=== PATIENT | male | born 1950 | race Caucasian/White ===

== ENCOUNTER 2022-09-21 18:33 | Inpatient (IN) | payer OTHER, MEDICARE ==
[~2022-09-21] VITALS: Ht 175.3 cm; Wt 70.8 kg
[2022-09-21 18:35] VITALS: BP_SYST 134
[2022-09-21] MEDS ORDERED: DECADRON 4 MG TABLET PO ONE (19:30)
[2022-09-21 21:05] LABS: ANION GAP 8 (5-15); CALCIUM 9.4 mg/dL (8.4-11.0); CHLORIDE 101 mmol/L (98-107); CREATININE 0.55 mg/dL (0.55-1.30); GLUCOSE 111 mg/dL (70-99); UREA NITROGEN, BLOOD 14 mg/dL (8-21)
[2022-09-21 21:14] LABS: ALANINE AMINOTRANSFERASE 46 U/L (12-78); ALBUMIN 3.8 g/dL (3.4-4.8); ASPARTATE AMINOTRANSFERASE 46 U/L (10-37); PHOSPHORUS 3.5 mg/dL (2.7-4.5); TOTAL BILIRUBIN 0.4 mg/dL (0.0-1.0)
--- NOTE | 2022-09-21 21:32 | NUR ---
Patient to ER bed 06 to gown for evaluation. Side rails up.
[2022-09-21 21:52] LABS: BASOPHILS % (AUTO) 0.4 % (0.0-2.0); HEMATOCRIT 47.9 % (36-54); HEMOGLOBIN 15.8 g/dL (14.0-18.0); LYMPHOCYTES % (AUTO) 11.7 % (20.5-51.5); MEAN CORPUSCULAR HEMOGLOBIN 30 pg (27-31); MEAN CORPUSCULAR HGB CONC 33 % (32-36); MEAN CORPUSCULAR VOLUME 91 fL (79.0-98.0); MONOCYTES # (AUTO) 0.9 K/uL (0.0-1.0); MONOCYTES % (AUTO) 10.1 % (1.7-9.3); NEUTROPHILS # (AUTO) 6.6 K/uL (1.8-7.7); NEUTROPHILS % (AUTO) 77.8 % (40.0-70.0); PLATELET COUNT (AUTO) 192 K/uL (130-430); RED BLOOD CELL COUNT(AUTO) 5.23 MIL/uL (4.2-6.2); RED CELL DISTRIBUTION WIDTH 14.2 % (9.0-15.0); WHITE BLOOD COUNT (AUTO) 8.5 K/uL (4.8-10.8)
[2022-09-21] MEDS ORDERED: DECADRON 4 MG TABLET ONE (21:57)
--- NOTE | 2022-09-21 22:03 | NUR ---
PT TESTED POSITIVE FOR COVID TODAY COMPLAINING OF FLU-LIKE SYMPTOMS, INCREASED SOB, AND FEVER PLACED PT ON 2L NC PT AOX4. RESP LABORED WITH ACTIVITY. COUGHING NOTED. SKIN HOT, DRY, INTACT. HX HYPOKALEMIA
--- NOTE | 2022-09-21 22:09 | NUR ---
COVID/INFLUENZA COLLECTED AND SENT TO LAB.
[2022-09-21] MEDS ORDERED: ACETAMINOPHEN 500 MG TABLET PO ONE (22:15)
[2022-09-21] MEDS ORDERED: ACETAMINOPHEN 500 MG TABLET ONE (22:22)
[2022-09-22] MEDS ORDERED: AZITHROMYCIN 500 MG in NS 250 ML IV ONE ×2
--- NOTE | 2022-09-22 00:10 | NUR ---
# 20 gauge angiocath placed to RIGHT HAND. Use of asceptic technique. Opsite placed over site. Blood return noted. Blood for lab drawn from site. Flushed with 10 cc of normal saline. No evidence of infiltration noted. Patient tolerated well.
[2022-09-22] MEDS ORDERED: cefTRIAXone 1 GM VIAL ONE (00:38)
[2022-09-22] MEDS: ENOXAPARIN SODIUM 40 MG/0.4 ML SYRINGE SUBCUT SCH ×2 (00:38→21:40)
[2022-09-22] MEDS: cefTRIAXone 1 GM in D5W 50 ML IV SCH (00:40)
[2022-09-22] MEDS ORDERED: POTA8TAB66 PO (00:42)
[2022-09-22] MEDS ORDERED: AZITHROMYCIN 500 MG/VIAL (ZITHROMAX) IV ONE (00:49)
--- NOTE | 2022-09-22 01:09 | NUR ---
Patient will be admitted to care of shanel molina. Admitted to tele unit. Will go to room 133b. Belongings list completed. Complete and up to date summary report printed. SBAR report to be given at bedside with opportunity for questions.
--- NOTE | 2022-09-22 01:10 | NUR ---
Admission Note Received patient from ER with diagnosis of acute respiratory failure. Initial Plan of Care discussed-patient verbalized understanding. Oriented to room, call light, pain management and safety.
[2022-09-22 01:18] VITALS: BP_SYST 92
--- NOTE | 2022-09-22 03:21 | NUR ---
ROUNDS PATIENT IN BED, RESTING. NO CHANGE IN CONDITION. WILL MONITOR.
--- NOTE | 2022-09-22 04:51 | NUR ---
CONSULTATION PAGED/CALLED Reason for Consultation: COVID Person Who was Notified: LASHONDA Consulting Physician: DR.BEGUM SIMPSON FOR Lap Winding Machine Operator Specialty: ID Ordering Physician: LILY
--- NOTE | 2022-09-22 06:13 | NUR ---
CLOSING NOTE PATIENT IN BED, RESTING. NO S/S OF ACUTE DISTRESS NOTED. BREATHING EVEN AND UNLABORED. HOB RAISED. NASAL CANULA ATTACHED PROPERLY, ON 4L OF OXYGEN. IV SITE PATENT, NO SIGNS OF INFILTRATION OR INFECTION NOTED. ALL NEEDS MET THROUGHOUT SHIFT. FALL, SAFETY PRECAUTIONS IN PLACE. WILL MONITOR UNTIL PATIENT CARE IS ENDORSED TO ONCOMING DAYSHIFT NURSE.
[2022-09-22 08:22] VITALS: BP_SYST 96
[2022-09-22] MEDS: ASCORBIC ACID 500 MG TABLET PO SCH ×2 (08:51→21:39)
[2022-09-22] MEDS: CHOLECALCIFEROL (VITAMIN D3) 2,000 UNIT TABLET PO SCH (08:52)
[2022-09-22] MEDS: POTASSIUM CHLORIDE 20 MEQ TAB.PRT.SR PO SCH ×2 (08:52→21:39)
[2022-09-22] MEDS: MAGNESIUM OXIDE 400 MG TABLET PO SCH ×2 (08:52→21:39)
--- NOTE | 2022-09-22 09:45 | NUR ---
PT ASSISTED TO BS COMMODE. PT IS MAX ASSIST DUE TO WEAKNESS. NOTED THAT PT UNABLE TO STAND FROM SITTING POSITION. NEEDS ASSIST.
--- NOTE | 2022-09-22 12:00 | NUR ---
CONSULTATION PAGED/CALLED Reason for Consultation: [] COVID Person Who was Notified: [] ROMERO Consulting Physician: [] DR VASQUEZ Freight Brake Operator Specialty: [] PULMO Ordering Physician: [] DR BAUTISTA
[2022-09-22] MEDS ORDERED: BUDE6HFA INH (12:31)
[2022-09-22] MEDS ORDERED: BUDESONIDE/FORMOTEROL 160-4.5 mCg, 6 GM INHALER INH SCH (13:45)
[2022-09-22] MEDS: ALBUTEROL MDI INHALATION 8 GM INH INH SCH ×3 (14:45→21:59)
[2022-09-22 15:01] VITALS: BP_SYST 108
[2022-09-22 18:22] VITALS: BP_SYST 110
--- NOTE | 2022-09-22 19:32 | NUR ---
PT HAS BEEN STABLE THE WHOLE SHIFT, NO FEVER. PT STARTED ON REMDESIVIR AND MDI INHALERS. ENDORSED TO NIGHT NURSE.
[2022-09-22 20:30] VITALS: BP_SYST 106
[2022-09-22] MEDS: methylPREDNISolone SOD SUCC/PF 62.5 MG/ML VIAL IVP SCH (21:40)
[2022-09-22] MEDS: [UNRECOGNIZED DRUG - REMARK] INH SCH (21:59)
[2022-09-23 01:40] VITALS: BP_SYST 112
[2022-09-23] MEDS: cefTRIAXone 1 GM in D5W 50 ML IV SCH ×2 (01:46→22:01)
[2022-09-23] MEDS: methylPREDNISolone SOD SUCC/PF 62.5 MG/ML VIAL IVP SCH ×3 (05:53→22:01)
--- NOTE | 2022-09-23 05:53 | NUR ---
Closing notes Pt asleep, easily awakens. No s/s distress noted. O2 sat 92-93% on 2L NC. Scheduled Solumedrol administered R. hand 20 clear and patent. Safety/Covid isolation maintained. To endorse to AM nurse.
[2022-09-23 06:50] LABS: BASOPHILS % (AUTO) 0.2 % (0.0-2.0); HEMATOCRIT 46.6 % (36-54); HEMOGLOBIN 15.4 g/dL (14.0-18.0); LYMPHOCYTES # (AUTO) 0.6 K/uL (1.0-5.5); LYMPHOCYTES % (AUTO) 11.3 % (20.5-51.5); MEAN CORPUSCULAR HEMOGLOBIN 30 pg (27-31); MEAN CORPUSCULAR HGB CONC 33 % (32-36); MEAN CORPUSCULAR VOLUME 91 fL (79.0-98.0); MONOCYTES # (AUTO) 0.1 K/uL (0.0-1.0); MONOCYTES % (AUTO) 2.6 % (1.7-9.3); NEUTROPHILS # (AUTO) 4.3 K/uL (1.8-7.7); NEUTROPHILS % (AUTO) 85.9 % (40.0-70.0); PLATELET COUNT (AUTO) 199 K/uL (130-430); RED BLOOD CELL COUNT(AUTO) 5.11 MIL/uL (4.2-6.2); RED CELL DISTRIBUTION WIDTH 14.1 % (9.0-15.0)
[2022-09-23 06:58] LABS: ALANINE AMINOTRANSFERASE 46 U/L (12-78); ALBUMIN 2.9 g/dL (3.4-4.8); ANION GAP 6 (5-15); ASPARTATE AMINOTRANSFERASE 39 U/L (10-37); CALCIUM 8.6 mg/dL (8.4-11.0); CHLORIDE 103 mmol/L (98-107); CREATININE 0.45 mg/dL (0.55-1.30); GLUCOSE 157 mg/dL (70-99); TOTAL BILIRUBIN 0.3 mg/dL (0.0-1.0); UREA NITROGEN, BLOOD 19 mg/dL (8-21)
[2022-09-23 07:57] VITALS: BP_SYST 118
[2022-09-23] MEDS: CHOLECALCIFEROL (VITAMIN D3) 2,000 UNIT TABLET PO SCH (09:27)
[2022-09-23] MEDS: [UNRECOGNIZED DRUG - REMARK] INH SCH ×2 (09:27→22:02)
[2022-09-23] MEDS: POTASSIUM CHLORIDE 20 MEQ TAB.PRT.SR PO SCH ×2 (09:28→22:02)
[2022-09-23] MEDS: ASCORBIC ACID 500 MG TABLET PO SCH ×2 (09:28→22:02)
[2022-09-23] MEDS: MAGNESIUM OXIDE 400 MG TABLET PO SCH ×2 (09:28→22:01)
[2022-09-23] MEDS: ALBUTEROL MDI INHALATION 8 GM INH INH SCH ×4 (09:31→22:02)
[2022-09-23 13:43] VITALS: BP_SYST 109
[2022-09-23 18:23] VITALS: BP_SYST 138
--- NOTE | 2022-09-23 19:39 | NUR ---
PT HAS BEEN STABLE THE WHOLE SHIFT, NO SOB, NO FEVER. PT HAD 3X LOOSE STOOL. SEEN BY DR BELTRÁN. ENDORSED TO NIGHT NURSE.
[2022-09-23] MEDS ORDERED: DEXAMETHASONE SOD PHOSPHATE 10 MG/ML VIAL IVP SCH (22:00)
[2022-09-23] MEDS: ENOXAPARIN SODIUM 40 MG/0.4 ML SYRINGE SUBCUT SCH (22:01)
[2022-09-24] MEDS: methylPREDNISolone SOD SUCC/PF 62.5 MG/ML VIAL IVP SCH ×3 (06:36→21:50)
[2022-09-24] MEDS: POTASSIUM CHLORIDE 20 MEQ TAB.PRT.SR PO SCH ×2 (08:15→21:48)
[2022-09-24] MEDS: CHOLECALCIFEROL (VITAMIN D3) 2,000 UNIT TABLET PO SCH (08:15)
[2022-09-24] MEDS: MAGNESIUM OXIDE 400 MG TABLET PO SCH ×2 (08:16→21:49)
[2022-09-24] MEDS: ASCORBIC ACID 500 MG TABLET PO SCH ×2 (08:16→21:49)
[2022-09-24] MEDS: [UNRECOGNIZED DRUG - REMARK] INH SCH ×2 (08:17→21:36)
[2022-09-24] MEDS: ALBUTEROL MDI INHALATION 8 GM INH INH SCH ×4 (08:17→21:36)
[2022-09-24 08:23] VITALS: BP_SYST 127
[2022-09-24 11:44] LABS: ALANINE AMINOTRANSFERASE 49 U/L (12-78); ALBUMIN 3.1 g/dL (3.4-4.8); ANION GAP 5 (5-15); ASPARTATE AMINOTRANSFERASE 29 U/L (10-37); CALCIUM 8.9 mg/dL (8.4-11.0); CHLORIDE 103 mmol/L (98-107); CREATININE 0.65 mg/dL (0.55-1.30); GLUCOSE 167 mg/dL (70-99); TOTAL BILIRUBIN 0.4 mg/dL (0.0-1.0); UREA NITROGEN, BLOOD 19 mg/dL (8-21)
[2022-09-24 12:00] VITALS: BP_SYST 120
--- NOTE | 2022-09-24 14:00 | NUR ---
PT SEEN BY DR VASQUEZ AND DR BELTRÁN. DR BAUTISTA WAS HERE ALSO AND SWA PT. NEW ORDERS GIVEN BY DR BAUTISTA.
[2022-09-24] MEDS ORDERED: LOPERAMIDE HCL 2 MG CAPSULE PO ONE (15:00)
--- NOTE | 2022-09-24 15:49 | NUR ---
Major DE LA CRUZ WORKING WITH PT AT THIS TIME.
[2022-09-24 16:00] VITALS: BP_SYST 123
[2022-09-24 19:00] VITALS: BP_SYST 133
[2022-09-24 20:00] VITALS: BP_SYST 133
[2022-09-24] MEDS: LOPERAMIDE HCL 2 MG CAPSULE PO PRN (21:45)
[2022-09-24] MEDS: ENOXAPARIN SODIUM 40 MG/0.4 ML SYRINGE SUBCUT SCH (21:50)
[2022-09-24] MEDS: cefTRIAXone 1 GM in D5W 50 ML IV SCH (23:52)
[2022-09-25 00:30] VITALS: BP_SYST 112
[2022-09-25] MEDS: LOPERAMIDE HCL 2 MG CAPSULE PO PRN ×3 (04:56→21:47)
[2022-09-25] MEDS: methylPREDNISolone SOD SUCC/PF 62.5 MG/ML VIAL IVP SCH ×3 (05:12→21:15)
[2022-09-25 07:10] LABS: HEMATOCRIT 49.8 % (36-54); HEMOGLOBIN 16.5 g/dL (14.0-18.0); LYMPHOCYTES # (AUTO) 0.9 K/uL (1.0-5.5); LYMPHOCYTES % (AUTO) 10.7 % (20.5-51.5); MEAN CORPUSCULAR HEMOGLOBIN 30 pg (27-31); MEAN CORPUSCULAR HGB CONC 33 % (32-36); MEAN CORPUSCULAR VOLUME 92 fL (79.0-98.0); MONOCYTES # (AUTO) 0.4 K/uL (0.0-1.0); MONOCYTES % (AUTO) 4.5 % (1.7-9.3); NEUTROPHILS # (AUTO) 6.8 K/uL (1.8-7.7); NEUTROPHILS % (AUTO) 84.8 % (40.0-70.0); PLATELET COUNT (AUTO) 268 K/uL (130-430); RED BLOOD CELL COUNT(AUTO) 5.43 MIL/uL (4.2-6.2); RED CELL DISTRIBUTION WIDTH 13.8 % (9.0-15.0)
[2022-09-25 07:27] LABS: ALANINE AMINOTRANSFERASE 51 U/L (12-78); ALBUMIN 3.1 g/dL (3.4-4.8); ANION GAP 8 (5-15); ASPARTATE AMINOTRANSFERASE 19 U/L (10-37); CALCIUM 8.5 mg/dL (8.4-11.0); CHLORIDE 102 mmol/L (98-107); CREATININE 0.36 mg/dL (0.55-1.30); GLUCOSE 135 mg/dL (70-99); TOTAL BILIRUBIN 0.4 mg/dL (0.0-1.0); UREA NITROGEN, BLOOD 20 mg/dL (8-21)
[2022-09-25 08:00] VITALS: BP_SYST 118
--- NOTE | 2022-09-25 08:00 | NUR ---
Initial Notes Patient is Aox4. Awake and resting in bed. On 2 L O 2 via NC. Breathing is even and nonlabored. No ss of distress noted. Patient denies pain. Denies SOB. Vital signs obtained, as documented. Iv patent. Breakfast at bedside table. Bed is locked, alarm on, and at lowest position. Call light within reach.
[2022-09-25] MEDS: POTASSIUM CHLORIDE 20 MEQ TAB.PRT.SR PO SCH ×2 (09:42→20:40)
[2022-09-25] MEDS: ASCORBIC ACID 500 MG TABLET PO SCH ×2 (09:42→20:41)
[2022-09-25] MEDS: CHOLECALCIFEROL (VITAMIN D3) 2,000 UNIT TABLET PO SCH (09:42)
[2022-09-25] MEDS: MAGNESIUM OXIDE 400 MG TABLET PO SCH ×2 (09:42→20:41)
[2022-09-25] MEDS: [UNRECOGNIZED DRUG - REMARK] INH SCH ×2 (09:43→20:18)
[2022-09-25] MEDS: ALBUTEROL MDI INHALATION 8 GM INH INH SCH ×5 (09:43→20:19)
--- NOTE | 2022-09-25 12:00 | NUR ---
Notes Assisted patient to bedpan. Patient is not resting. No ss of distress noted. Denies pain. Safety precautions in place and call light within reach.
[2022-09-25 14:04] VITALS: BP_SYST 131
[2022-09-25 16:00] VITALS: BP_SYST 131
--- NOTE | 2022-09-25 16:00 | NUR ---
Notes No discharge noted. Denies pain. Patient is resting. Breathing is even and nonlabored, on 2 L O2 via nasal canula. Safety precautions in place and call light within reach.
--- NOTE | 2022-09-25 18:54 | NUR ---
Closing Notes Patient is awake and eating dinner. Denies pain. No SOB noted. Breathing is even and nonlabored, on 2 L O2 via NC. IV patent. Patient is stable. All needs met. Bed is locked, alarm on, and at lowest position. Call light within reach.
[2022-09-25 19:00] VITALS: BP_SYST 141
[2022-09-25 20:00] VITALS: BP_SYST 141
[2022-09-25] MEDS: ENOXAPARIN SODIUM 40 MG/0.4 ML SYRINGE SUBCUT SCH (20:41)
[2022-09-26] VITALS: BP_SYST 138
[2022-09-26] MEDS: cefTRIAXone 1 GM in D5W 50 ML IV SCH ×2 (00:09→23:32)
[2022-09-26] MEDS: methylPREDNISolone SOD SUCC/PF 62.5 MG/ML VIAL IVP SCH ×2 (06:39→14:10)
[2022-09-26] MEDS: LOPERAMIDE HCL 2 MG CAPSULE PO PRN (06:39)
[2022-09-26 07:22] LABS: ALANINE AMINOTRANSFERASE 51 U/L (12-78); ALBUMIN 3.1 g/dL (3.4-4.8); ANION GAP 6 (5-15); ASPARTATE AMINOTRANSFERASE 20 U/L (10-37); CALCIUM 8.6 mg/dL (8.4-11.0); CHLORIDE 102 mmol/L (98-107); CREATININE 0.46 mg/dL (0.55-1.30); GLUCOSE 130 mg/dL (70-99); TOTAL BILIRUBIN 0.4 mg/dL (0.0-1.0); UREA NITROGEN, BLOOD 19 mg/dL (8-21)
--- NOTE | 2022-09-26 07:26 | NUR ---
OPENING NOTES: RECEIVED BEDSIDE SBAR FROM PM SHIFT NURSE, PATIENT IS STABLE NO DISTRESS, RESTING IN BED WITH EYES CLOSED, CALL LIGHT IN REACH, BED LOCKED AND IN LOW POSITION ALL NEEDS BEING KNOWN, WILL MONITOR PATIENT PER ORDERS.
[2022-09-26 08:01] VITALS: BP_SYST 130
[2022-09-26] MEDS: ALBUTEROL MDI INHALATION 8 GM INH INH SCH (09:00)
--- NOTE | 2022-09-26 09:26 | NUR ---
IV RE-INSERTION: Complaining of pain to IV site. Restarted on LEFT UPPER ARM. Successful after 1 attempts. Resumed current IVF NS and regulated @ 3 per hour. Will observe for any signs of infiltration.
[2022-09-26] MEDS: MAGNESIUM OXIDE 400 MG TABLET PO SCH ×2 (09:38→23:30)
[2022-09-26] MEDS: POTASSIUM CHLORIDE 20 MEQ TAB.PRT.SR PO SCH ×2 (09:38→23:29)
[2022-09-26] MEDS: ASCORBIC ACID 500 MG TABLET PO SCH ×2 (09:38→23:30)
[2022-09-26] MEDS: CHOLECALCIFEROL (VITAMIN D3) 2,000 UNIT TABLET PO SCH (09:38)
[2022-09-26] MEDS: [UNRECOGNIZED DRUG - REMARK] INH SCH ×2 (09:41→21:00)
[2022-09-26 12:30] VITALS: BP_SYST 131
--- NOTE | 2022-09-26 12:30 | NUR ---
PATIENT REMAINS STABLE RESTING WELL IN BED, ALL NEEDS BEING KNOWN, WILL CONT TO MONITOR PATIENT
[2022-09-26 13:14] VITALS: BP_SYST 130
--- NOTE | 2022-09-26 18:20 | NUR ---
CLOSING NOTES: PATIENT REMAINED STABLE NO DISTRESS, ALL NEED WHERE KNOWN, PATIENT RESTING WELL IN BED CALL LIGHT IN REACH, BED AT LOW AND LOCKED POSITION WILL GIVE PM SHIFT NURSE BEDSIDE SBAR.
[2022-09-26 20:00] VITALS: BP_SYST 135
[2022-09-26] MEDS: METHYLPREDNISOLONE SOD SUCC 40 MG/ML VIAL IVP SCH (23:28)
[2022-09-26] MEDS: ENOXAPARIN SODIUM 40 MG/0.4 ML SYRINGE SUBCUT SCH (23:31)
[2022-09-27 08:00] VITALS: BP_SYST 133
[2022-09-27 08:50] LABS: BASOPHILS % (AUTO) 0.1 % (0.0-2.0); HEMATOCRIT 48.7 % (36-54); HEMOGLOBIN 16.3 g/dL (14.0-18.0); LYMPHOCYTES % (AUTO) 11.3 % (20.5-51.5); MEAN CORPUSCULAR HEMOGLOBIN 30 pg (27-31); MEAN CORPUSCULAR HGB CONC 34 % (32-36); MEAN CORPUSCULAR VOLUME 90 fL (79.0-98.0); MONOCYTES # (AUTO) 0.7 K/uL (0.0-1.0); MONOCYTES % (AUTO) 8.1 % (1.7-9.3); NEUTROPHILS # (AUTO) 6.9 K/uL (1.8-7.7); NEUTROPHILS % (AUTO) 80.5 % (40.0-70.0); PLATELET COUNT (AUTO) 288 K/uL (130-430); RED CELL DISTRIBUTION WIDTH 13.6 % (9.0-15.0); WHITE BLOOD COUNT (AUTO) 8.6 K/uL (4.8-10.8)
[2022-09-27] MEDS: MAGNESIUM OXIDE 400 MG TABLET PO SCH ×2 (08:56→20:09)
[2022-09-27] MEDS: ASCORBIC ACID 500 MG TABLET PO SCH ×2 (08:56→20:09)
[2022-09-27] MEDS: MULTIVITS,CA,MINERALS/IRON/FA 1 TABLET PO SCH (08:56)
[2022-09-27] MEDS: METHYLPREDNISOLONE SOD SUCC 40 MG/ML VIAL IVP SCH (08:57)
[2022-09-27] MEDS: CHOLECALCIFEROL (VITAMIN D3) 2,000 UNIT TABLET PO SCH (08:57)
[2022-09-27] MEDS: POTASSIUM CHLORIDE 20 MEQ TAB.PRT.SR PO SCH ×2 (08:57→20:09)
[2022-09-27] MEDS: [UNRECOGNIZED DRUG - REMARK] INH SCH ×2 (09:04→20:08)
[2022-09-27 09:20] LABS: ALANINE AMINOTRANSFERASE 51 U/L (12-78); ALBUMIN 2.9 g/dL (3.4-4.8); ANION GAP 4 (5-15); ASPARTATE AMINOTRANSFERASE 20 U/L (10-37); CALCIUM 8.2 mg/dL (8.4-11.0); CHLORIDE 102 mmol/L (98-107); CREATININE 0.41 mg/dL (0.55-1.30); GLUCOSE 128 mg/dL (70-99); TOTAL BILIRUBIN 0.5 mg/dL (0.0-1.0); UREA NITROGEN, BLOOD 16 mg/dL (8-21)
[2022-09-27 12:00] VITALS: BP_SYST 123
[2022-09-27 16:00] VITALS: BP_SYST 122
--- NOTE | 2022-09-27 19:30 | NUR ---
OPENING NOTE Pt is awake lying in bed. No s/s of respiratory distress. A/o x4, currently nonambulatory. Breathing even and unlabored on RA. IV site intact and patent saline lock. Fall and safety precautions in place with bed in lowest position, bed alarm on, and call light within reach
[2022-09-27 20:00] VITALS: BP_SYST 106
[2022-09-27] MEDS: ENOXAPARIN SODIUM 40 MG/0.4 ML SYRINGE SUBCUT SCH (20:09)
[2022-09-27] MEDS: predniSONE 20 MG TABLET PO SCH (20:09)
[2022-09-28] VITALS: BP_SYST 115
--- NOTE | 2022-09-28 00:15 | NUR ---
ROUNDS Pt lying in bed, breathing even and unlabored. VSS. Fall and safety checks in place
[2022-09-28] MEDS: cefTRIAXone 1 GM in D5W 50 ML IV SCH (00:37)
--- NOTE | 2022-09-28 02:51 | NUR ---
CONSULTATION PAGED/CALLED Reason for Consultation: WEAKNESS Person Who was Notified: DR KAY VIA TEXT Consulting Physician: Meghan DAUGHERTY Periodontal Assistant Specialty: Ordering Physician: LILY
--- NOTE | 2022-09-28 06:54 | NUR ---
CLOSING NOTE Pt is awake lying in bed. No s/s of respiratory distress. Breathing even and unlabored on RA. IV site intact and patent saline lock. All needs met throughout shift. Fall and safety precautions in place with bed in lowest position, bed alarm on, and call light within reach
[2022-09-28 08:00] VITALS: BP_SYST 127
--- NOTE | 2022-09-28 08:17 | NUR ---
Patient received awake and alert able to communicate needs. Med Surg patient. no edema noted. Received patient on room air, tolerating well. Patient is continent gi/gu. Using urinal. Patient has noted generalized weakness, working with physical therapy. Denies pain at this time.
[2022-09-28] MEDS: ALBUTEROL MDI INHALATION 8 GM INH INH SCH ×5 (09:00→21:00)
[2022-09-28] MEDS: MAGNESIUM OXIDE 400 MG TABLET PO SCH ×2 (09:21→20:35)
[2022-09-28] MEDS: MULTIVITS,CA,MINERALS/IRON/FA 1 TABLET PO SCH (09:21)
[2022-09-28] MEDS: predniSONE 20 MG TABLET PO SCH (09:21)
[2022-09-28] MEDS: POTASSIUM CHLORIDE 20 MEQ TAB.PRT.SR PO SCH ×2 (09:21→20:39)
[2022-09-28] MEDS: CHOLECALCIFEROL (VITAMIN D3) 2,000 UNIT TABLET PO SCH (09:21)
[2022-09-28] MEDS: ASCORBIC ACID 500 MG TABLET PO SCH ×2 (09:22→20:35)
[2022-09-28] MEDS: [UNRECOGNIZED DRUG - REMARK] INH SCH ×2 (09:27→20:35)
[2022-09-28 12:00] VITALS: BP_SYST 138
--- NOTE | 2022-09-28 12:00 | NUR ---
Discharge Planning: DCP faxed pt referral to [facility] [phone] DCP to follow up
--- NOTE | 2022-09-28 13:19 | NUR ---
Dietitian Recommendations * If/ when medically appropriate, advance to regular diet * Consider prune juice BID, if constipation persists GS, MPH, RD Please refer to RD Assessment for further details. Thanks! Addendum: 09/28/22 at [address] Amended: Links added.
--- NOTE | 2022-09-28 18:26 | NUR ---
Paulina called for update, update provided with patient consent. Verbalized wanting patient to go to snf or rehab as he was independent prior to admission and they are unable to have a full time babysitter caregiver for patient. Informed family I would call case management and have them reach out for DC planning. CalledCM extension from in hospital phone and left VM with , Paulina, contact number of [phone]
--- NOTE | 2022-09-28 19:30 | NUR ---
OPENING NOTE Pt is awake sitting up in bed. No s/s of respiratory distress. Breathing even and unlabored on RA. IV site intact and patent saline lock. Fall and safety precautions in place with bed in lowest position, bed alarm on, and call light within reach
[2022-09-28 20:00] VITALS: BP_SYST 118
[2022-09-28] MEDS: ENOXAPARIN SODIUM 40 MG/0.4 ML SYRINGE SUBCUT SCH (20:35)
[2022-09-28] MEDS: predniSONE 10 MG TABLET PO SCH (20:35)
[2022-09-29] MEDS: cefTRIAXone 1 GM in D5W 50 ML IV SCH (00:08)
--- NOTE | 2022-09-29 00:15 | NUR ---
ROUNDS Pt awake sitting up in bed. No s/s of acute distress. VSS. Fall and safety checks in place
[2022-09-29 00:24] VITALS: BP_SYST 120
[2022-09-29 06:41] LABS: BASOPHILS % (AUTO) 0.1 % (0.0-2.0); EOSINOPHILS # (AUTO) 0.1 K/uL (0.0-0.4); EOSINOPHILS % (AUTO) 0.9 % (0.0-4.0); HEMATOCRIT 55.7 % (36-54); HEMOGLOBIN 18.2 g/dL (14.0-18.0); LYMPHOCYTES # (AUTO) 2.2 K/uL (1.0-5.5); LYMPHOCYTES % (AUTO) 18.1 % (20.5-51.5); MEAN CORPUSCULAR HEMOGLOBIN 30 pg (27-31); MEAN CORPUSCULAR HGB CONC 33 % (32-36); MEAN CORPUSCULAR VOLUME 91 fL (79.0-98.0); MONOCYTES # (AUTO) 1.2 K/uL (0.0-1.0); NEUTROPHILS # (AUTO) 8.5 K/uL (1.8-7.7); NEUTROPHILS % (AUTO) 70.9 % (40.0-70.0); PLATELET COUNT (AUTO) 385 K/uL (130-430); RED BLOOD CELL COUNT(AUTO) 6.11 MIL/uL (4.2-6.2); RED CELL DISTRIBUTION WIDTH 14.1 % (9.0-15.0); WHITE BLOOD COUNT (AUTO) 11.9 K/uL (4.8-10.8)
[2022-09-29 07:11] LABS: ALANINE AMINOTRANSFERASE 66 U/L (12-78); ALBUMIN 3.5 g/dL (3.4-4.8); ANION GAP 6 (5-15); ASPARTATE AMINOTRANSFERASE 29 U/L (10-37); CALCIUM 8.6 mg/dL (8.4-11.0); CHLORIDE 99 mmol/L (98-107); CREATININE 0.39 mg/dL (0.55-1.30); GLUCOSE 82 mg/dL (70-99); PHOSPHORUS 3.8 mg/dL (2.7-4.5); TOTAL BILIRUBIN 0.9 mg/dL (0.0-1.0); UREA NITROGEN, BLOOD 19 mg/dL (8-21)
--- NOTE | 2022-09-29 08:21 | NUR ---
OPENING NOTES: RECEIVED BEDSIDE SBAR FROM PM SHIFT NURSE, PATIENT IS STABLE NO S/S OF DISTRESS OR PAIN, BREATHING NON LABORED BED LOCKED AND AT LOW POSITION, CALL LIGHT IN REACH, ALL SAFETY NEEDS BEING MET, WILL CONT TO MONITOR PATIENT PER ORDERS.
--- NOTE | 2022-09-29 08:46 | NUR ---
Discharge Planning: GIULIAP followed up with pt referral to [facility] [phone] accepting pt. DCP made CM aware.
[2022-09-29] MEDS: ALBUTEROL MDI INHALATION 8 GM INH INH SCH (09:00)
[2022-09-29] MEDS: CHOLECALCIFEROL (VITAMIN D3) 2,000 UNIT TABLET PO SCH (09:39)
[2022-09-29] MEDS: POTASSIUM CHLORIDE 20 MEQ TAB.PRT.SR PO SCH ×2 (09:39→21:10)
[2022-09-29] MEDS: predniSONE 10 MG TABLET PO SCH ×2 (09:40→21:10)
[2022-09-29] MEDS: MAGNESIUM OXIDE 400 MG TABLET PO SCH ×2 (09:40→21:11)
[2022-09-29] MEDS: MULTIVITS,CA,MINERALS/IRON/FA 1 TABLET PO SCH (09:40)
[2022-09-29] MEDS: ASCORBIC ACID 500 MG TABLET PO SCH ×2 (09:40→21:10)
[2022-09-29] MEDS: [UNRECOGNIZED DRUG - REMARK] INH SCH ×2 (09:41→21:11)
[2022-09-29 11:20] VITALS: BP_SYST 114
--- NOTE | 2022-09-29 12:30 | NUR ---
ROUNDS: PATIENT REMAINED STABLE AT THIS TIME NO S/S OF DISTRESS OR PAIN, BREATHING NON-LABORED, ALL SAFETY NEEDS HAVE BEEN MET. WILL CONT TO MONITOR PATIENT PER ORDERS.
[2022-09-29] MEDS ORDERED: MENTHOL/ZINC OXIDE 113 GM OINT. TP PRN (15:00)
[2022-09-29 16:25] VITALS: BP_SYST 111
--- NOTE | 2022-09-29 18:33 | NUR ---
CLOSING NOTES: PATIENT REMAINS STABLE NO S/S OF DISTRESS OR PAIN, RESTING WELL IN BED. ALL SAFETY NEED MET. BED LOCKED AND IN LOW POSITION CALL LIGHT IN REACH, WILL GIVE PM SHIFT NURSE BEDSIDE SBAR.
[2022-09-29 19:40] VITALS: BP_SYST 128
--- NOTE | 2022-09-29 19:40 | NUR ---
PM ASSESSMENT; -Pt is a/ox4, resting in bed comfortably. Pt denies any chest pain,pain,sob,or any acute distress. LAC IV site patent drsg cdi. Discussed poc, all safety measures, and not to get OOB to use call light for assistance, pt verbalized understanding. Maintains droplet isolation. Pt is on room air [id number]% r/a. Fall precaution in place. bed alarmed, side rails x2, call light w/in reach. Cont to monitor pt.
[2022-09-29] MEDS: ENOXAPARIN SODIUM 40 MG/0.4 ML SYRINGE SUBCUT SCH (21:12)
[2022-09-30 00:13] VITALS: BP_SYST 106
--- NOTE | 2022-09-30 01:20 | NUR ---
ROUNDS; -Pt is asleep. No s/s any pain,sob,or any acute distress. Fall precaution in place. bed alarmed, side rails x3, call light w/in reach. Cont to monitor pt.
--- NOTE | 2022-09-30 06:30 | NUR ---
NOTES; -Pt is c/o sob and dry cough, [id number]=33% room air. Placed pt on 2L n/c oxy upon pt's request. cont to monitor pt.
--- NOTE | 2022-09-30 06:37 | NUR ---
ROUNDS; -Pt is resting in bed. Pt stated that he had x1 loose bowel movt entire shift. Pt denies any pain,sob,or any acute distress. Fall precaution in place. bed alarmed, side rails x2, call light w/in reach. Pt's condition stable. Maintains droplet isolation entire shift. Will endorse to next nurse to cont care.
--- NOTE | 2022-09-30 07:26 | NUR ---
PHYSICAL THERAPY CO-SIGN The Physical Therapy Progress Notes documented by [employer] have been reviewed. Reviewed/Co-Signed by: Jose Arevalo Documentation Done by: MAXIME BAIRD PTA Addendum: 09/30/22 at 0726 by Jose Arevalo PT Amended: Links added.
[2022-09-30 08:00] VITALS: BP_SYST 110
[2022-09-30] MEDS: POTASSIUM CHLORIDE 20 MEQ TAB.PRT.SR PO SCH (09:41)
[2022-09-30] MEDS: CHOLECALCIFEROL (VITAMIN D3) 2,000 UNIT TABLET PO SCH (09:42)
[2022-09-30] MEDS: MULTIVITS,CA,MINERALS/IRON/FA 1 TABLET PO SCH (09:42)
[2022-09-30] MEDS: MAGNESIUM OXIDE 400 MG TABLET PO SCH (09:43)
[2022-09-30] MEDS: predniSONE 10 MG TABLET PO SCH (09:43)
[2022-09-30] MEDS: ASCORBIC ACID 500 MG TABLET PO SCH (09:43)
[2022-09-30] MEDS: [UNRECOGNIZED DRUG - REMARK] INH SCH (09:44)
[2022-09-30] MEDS ORDERED: PRED10TA PO (11:53)
[2022-09-30] MEDS ORDERED: MULT-1145 PO (11:53)
[2022-09-30] MEDS ORDERED: LOVI40 SUBCUT (11:53)
[2022-09-30] MEDS ORDERED: MAGN400T10 PO (11:53)
[2022-09-30] MEDS ORDERED: ALBMDI INH (11:53)
[2022-09-30] MEDS ORDERED: Potassium Chloride PO (11:53)
[2022-09-30] MEDS ORDERED: VITD2000 PO (11:53)
[2022-09-30] MEDS ORDERED: EENT INH (11:53)
[2022-09-30 12:15] VITALS: BP_SYST 123
--- NOTE | 2022-09-30 12:30 | NUR ---
Discharge Planning: GIULIAP arranged transport with [facility] [phone] BLS 3:00pm to [facility] [phone]. GIULIAP made CM and nurse aware patient packet taken to nurse station.
[2022-09-30] MEDS ORDERED: DOXY100C5 PO (12:54)
[2022-09-30 12:57] VITALS: BP_SYST 134
--- NOTE | 2022-09-30 13:15 | NUR ---
Report given to HENRIQUE Mccoy at [facility] at [phone]. patient to be picked up by ambulance at 3 pm. Informed family members Koki and Gisela Copeland of patient to be transferred today. Patient respiration even, unlabored. No shortness of breath. Vital signs stable. Will continue to monitor.
--- NOTE | 2022-10-01 07:22 | NUR ---
PHYSICAL THERAPY CO-SIGN The Physical Therapy Progress Notes documented by [employer] have been reviewed. Reviewed/Co-Signed by: Jose Arevalo Documentation Done by: MAXIME BAIRD PTA Addendum: 10/01/22 at 0722 by Jose Arevalo PT Amended: Links added.
== END 2022-09-30 15:30 | DRG 177 ==
LOC: SED 18:33 → STU 22:51 → SMU 09-26 16:51
PROVIDERS: ADMIT Internal Medicine; ATTEND Internal Medicine
PROC: XW033E5 Introduction of Remdesivir Anti-infective into Peripheral Vein, Percutaneous Approach, New Technology Group 5 (ICD-10-PCS; principal; 2022-09-23)
DX: U07.1 COVID-19 (principal); J12.82 Pneumonia due to coronavirus disease 2019; J96.01 Acute respiratory failure with hypoxia; J44.1 Chronic obstructive pulmonary disease with (acute) exacerbation; E44.1 Mild protein-calorie malnutrition; R65.10 Systemic inflammatory response syndrome (SIRS) of non-infectious origin without acute organ dysfunction; J44.0 Chronic obstructive pulmonary disease with (acute) lower respiratory infection; E87.6 Hypokalemia; Z68.23 Body mass index [BMI] 23.0-23.9, adult; Z87.891 Personal history of nicotine dependence
CPT/HCPCS: 36415; 71045; 80053; 82306; 83735; 84100; 84484; 85025; 85379; 93005; 96365; 96372; 97110-GP; 97112-GP; 97530-GP; 99291; G0378; J0456; J0696; J1030; J1650; J2930; J7050; J7060; J7512; J8540; U0003